=== PATIENT | male | born 1970 | race Hispanic/Latino ===

== ENCOUNTER 2020-07-11 19:56 | Emergency (ER) | payer SELFPAY ==
[2020-07-11 21:29] LABS: Hemoglobin 15.2 g/dL (14.0-18.0); Mean Corpuscular HGB CONC 33.3 g/dL (32.0-36.0); Mean Corpuscular Volume 83.9 fL (78.0-98.0); Mean Platelet Volume 8.1 fL (7.4-10.4); Platelet Count 279 thou/uL (130-400); RBC Distribution Width 12.2 % (11.5-14.5); Red Blood Cell (RBC) Count 5.42 mill/uL (4.70-6.10); White Blood Cell (WBC) Count 21.8 thou/uL (4.8-10.8)
[2020-07-11 21:31] LABS: Bacteria/HPF None Seen HPF (None Seen); Bilirubin Negative (Negative); Blood, Urine 1+ (Negative); Clarity Clear (Clear); Glucose, Urine (Dipstick) 50 mg/dL (Negative); Ketone, Urine Greater than 150 mg/dL (Negative); Leukocyte Negative Leu/uL (Negative); Mucous/LPF 1+ LPF (<2+); Nitrite Negative (Negative); Protein, Urine (Dipstick) 100 mg/dL (Neg-Trace); Renal Epithelial 0-3 HPF (None Seen); Specific Gravity, Urine 1.038 (1.002-1.036); Squamous Epithelial 0-3 HPF (0-3); Urobilinogen Normal mg/dL (Less than 2); WBC/HPF 0-3 HPF (0-3)
[2020-07-11 21:47] LABS: Band 13 % (5-11); MDiff Complete? YES; Monocytes 2 % (0-10); Neutrophil 85 % (42-75); Platelet Morphology Comment Appears Adequate; RBC Morphology Normal
[2020-07-11 21:55] LABS: ALT (SGPT) 18 U/L (8-55); AST (SGOT) 18 U/L (5-34); Albumin 4.8 g/dL (3.5-5.0); Alkaline Phosphatase 147 U/L (40-110); Anion Gap 21 mmol/L (10-20); BUN (Urea Nitrogen) 17 mg/dL (8.9-20.6); Bilirubin, Total 0.8 mg/dL (0.2-1.2); Calc. Creatinine Clearance 0 mL/min (70-130); Calcium 9.8 mg/dL (7.8-10.44); Carbon Dioxide 21 mmol/L (22-29); Chloride 102 mmol/L (98-107); Glucose 152 mg/dL (70-105); Lipase 6 U/L (8-78); Potassium 4.3 mmol/L (3.5-5.1); Protein, Total 8.8 g/dL (6.0-8.3); Sodium 140 mmol/L (136-145)
[2020-07-11] MEDS ORDERED: Morphine 4 MG/ML VIAL ONE (22:36)
[2020-07-11] MEDS ORDERED: Ondansetron PF 4 MG/2 ML Vial ONE (22:36)
[2020-07-12] MEDS ORDERED: Ondansetron PF 4 MG/2 ML Vial ONE (01:02)
[2020-07-12] MEDS ORDERED: Morphine 4 MG/ML VIAL ONE (01:02)
--- NOTE | 2020-07-12 07:51 | CT ---
CT ABDOMEN AND PELVIS WITH IV CONTRAST: DATE: 07/11/2020. PROVIDED CLINICAL HISTORY: Abdominal pain with nausea and vomiting. FINDINGS: The visualized lung bases are free of significant opacity. There are numerous hypodense lesions within the liver, which demonstrate Hounsfield units greater edwin n expected for cysts. The largest of these measures about 2.2 cm involving the right hepatic lobe ne ar the dome and is somewhat poorly defined peripherally. There is focal intrahepatic biliary ductal dilatation involving the posterior segment of the right hepatic lobe cranially. The spleen, pancreas, kidneys, and adrenal glands appear unremarkable. There is focal mural thickening involving the sigmoid colon. There is adjacent inflammatory fat stra nding as well as phlegmon. There is no amilcar extraluminal gas or extraluminal fluid evident. Notabl y, sigmoid diverticula are not prominent. There is no additional inflammatory fat stranding. The appendix appears normal. There is no free fl uid or free air apparent. There is a soft tissue density within the retroperitoneum immediately anterior to the aortic bifurcat ion likely reflects an enlarged lymph node. The osseous structures no concerning lytic or blastic lesions. IMPRESSION: 1. Focal mural thickening involving the mid sigmoid colon with surrounding fat stranding and phlegmo n. This may reflect focal sigmoid colonic diverticulitis. The possibility of an inflammatory carcin ricky should also be considered. 2. Enlarged retroperitoneal lymph node and multiple low-density hepatic lesions may reflect metastat ic disease. 3. Focal intrahepatic biliary ductal dilatation involving the posterior segment of the right hepatic lobe. Further evaluation with nonemergent MRCP is recommended. POS: NOLBERTO
== END 2020-07-12 01:36 | disposition home or self-care (01) ==
LOC: ERS 19:56
DX: K57.92 Diverticulitis of intestine, part unspecified, without perforation or abscess without bleeding (principal); D72.829 Elevated white blood cell count, unspecified; R11.2 Nausea with vomiting, unspecified
CPT/HCPCS: 36415; 74177; 80053; 81003; 81015; 83690; 84484; 85025; 96374; 96375; 96376; J2270; J2405

== ENCOUNTER 2021-03-10 15:23 | Inpatient (IN) | payer SELFPAY ==
[~2021-03-10 15:23] MED LIST: Iopamidol-370 76% 500 ML 1 ML ONE
[2021-03-10 17:41] LABS: #Basophils 0.1 thou/uL (0.0-0.2); #Eosinphils 0.2 thou/uL (0.0-0.7); #Lymphocytes 2.1 thou/uL (1.20-3.40); #Monocytes 0.9 thou/uL (0.11-0.59); %Eosinophils 1.9 % (0.0-10.0); %Lymphocytes 25.7 % (21.0-51.0); %Monocytes 10.6 % (0.0-10.0); %Neutrophils 60.7 % (42.0-75.0); Hemoglobin 9.9 g/dL (14.0-18.0); Mean Corpuscular HGB CONC 32.7 g/dL (32.0-36.0); Mean Corpuscular Hemoglobin 22.4 pg (27.0-31.0); Mean Corpuscular Volume 68.7 fL (78.0-98.0); Mean Platelet Volume 9.5 fL (7.4-10.4); Platelet Count 369 thou/uL (130-400); RBC Distribution Width 14.8 % (11.5-14.5); Red Blood Cell (RBC) Count 4.41 mill/uL (4.70-6.10); White Blood Cell (WBC) Count 8.2 thou/uL (4.8-10.8)
[2021-03-10 18:01] LABS: ALT (SGPT) 20 U/L (8-55); AST (SGOT) 22 U/L (5-34); Albumin 4.4 g/dL (3.5-5.0); Alkaline Phosphatase 167 U/L (40-110); Anion Gap 16 mmol/L (10-20); BUN (Urea Nitrogen) 17 mg/dL (8.4-25.7); Bilirubin, Total 0.3 mg/dL (0.2-1.2); Calc. Creatinine Clearance 0 mL/min (70-130); Carbon Dioxide 21 mmol/L (22-29); Chloride 103 mmol/L (98-107); Globulin 3.9 g/dL (2.4-3.5); Glucose 97 mg/dL (70-105); Lipase 29 U/L (8-78); Protein, Total 8.3 g/dL (6.0-8.3); Sodium 136 mmol/L (136-145)
[2021-03-10 18:04] LABS: MDiff Complete? YES; Microcytosis MODERATE=15-30 cells (100X) (0-5/hpf); Ovalocytes SLIGHT = 2-5 cells (100X) (0-1/hpf); Platelet Morphology Comment Appears Adequate; Polychromasia SLIGHT = 2-3 cells (100X) (0-2/hpf); Schistocytes SLIGHT = 2-5 cells (100X) (0-1/hpf); Target Cells SLIGHT = 2-5 cells (100X) (0-1/hpf); Tear Drops SLIGHT = 2-5 cells (100X) (0-1/hpf)
[2021-03-10] MEDS ORDERED: Acetaminophen 500 MG TAB ONE (18:24)
[2021-03-10] MEDS ORDERED: Morphine 4 MG/ML VIAL ONE ×2 (18:24→20:55)
[2021-03-10] MEDS ORDERED: Ondansetron PF 4 MG/2 ML Vial ONE (18:24)
[2021-03-10 19:21] LABS: Bilirubin Negative (Negative); Blood, Urine Negative (Negative); Glucose, Urine (Dipstick) Normal (Negative); Ketone, Urine 20 mg/dL (Negative); Leukocyte Negative Leu/uL (Negative); Nitrite Negative (Negative); Protein, Urine (Dipstick) Negative (Neg-Trace); Urobilinogen Normal mg/dL (Less than 2)
[2021-03-10 19:28] LABS: Clarity Hazy (Clear)
[2021-03-10] MEDS ORDERED: Ondansetron PF 4 MG/2 ML Vial IVP PRN (21:07)
[2021-03-10] MEDS ORDERED: Morphine 2 MG/ML VIAL SLOW IVP PRN ×2 (21:16→21:20)
[2021-03-10] MEDS ORDERED: Morphine 4 MG/ML VIAL SLOW IVP SCH (21:30)
[2021-03-10 22:00] LABS: Reticulocyte Count 0.9 % (0.5-1.5)
[2021-03-10 22:02] LABS: Hemoglobin 8.8 g/dL (14.0-18.0); Mean Corpuscular HGB CONC 31.9 g/dL (32.0-36.0); Mean Corpuscular Hemoglobin 22.1 pg (27.0-31.0); Mean Corpuscular Volume 69.1 fL (78.0-98.0); Mean Platelet Volume 9.3 fL (7.4-10.4); Platelet Count 346 thou/uL (130-400); RBC Distribution Width 14.6 % (11.5-14.5); Red Blood Cell (RBC) Count 3.97 mill/uL (4.70-6.10); White Blood Cell (WBC) Count 7.3 thou/uL (4.8-10.8)
[2021-03-10 22:03] LABS: SARS-CoV-2 NAA Rapid Test Not Detected (NotDetected)
[2021-03-10 22:10] LABS: INR-International Normal Ratio 1.1; PTT 32.4 sec (22.9-36.1); Prothrombin Time 13.8 sec (12.0-14.7)
[2021-03-10] MEDS: Lactated Ringer's 1,000 ML IV SCH (22:15)
[2021-03-10 22:18] LABS: Iron 10 ug/dL (65-175); Iron 9 ug/dL (65-175); Iron Binding Capacity, Total 394 mcg/dL (261-462); Iron Binding Capacity, Total 398 mcg/dL (261-462); Transferrin, Serum 318 mg/dL (174-364)
[2021-03-10 22:26] LABS: Band 1 % (5-11); Elliptocytes SLIGHT = 2-5 cells (100X) (0-1/hpf); Hypochromia SLIGHT = 6-15 cells (100X) (0-5/hpf); Lymphocytes 30 % (21-51); MDiff Complete? YES; Microcytosis SLIGHT = 6-15 cells (100X) (0-5/hpf); Monocytes 7 % (0-10); Neutrophil 61 % (42-75); Platelet Morphology Comment Appears Adequate
[2021-03-10 22:37] LABS: CEA, Serum 6.36 ng/mL (< or = 5.0); Ferritin 10.59 ng/mL (22-322)
[2021-03-10 22:38] LABS: Syphilis Antibody Nonreactive (Nonreactive); Syphilis Antibody Index 0.04 S/CO (<1.00 Non-Reactive)
[2021-03-10 22:44] LABS: Vitamin B12 333 pg/mL (211-911)
[2021-03-10 22:54] VITALS: BMI 20.4
[2021-03-11] MEDS: Morphine 4 MG/ML VIAL SLOW IVP PRN ×4 (00:42→23:57)
[2021-03-11 01:24] LABS: HBCM Index 0.07 S/CO (0-0.79); HBSAB Concentration Less than 8.00 mIU/mL; HBSAg Index 0.19 S/CO (0-0.99); HIV (1/2) Antibody/Antigen Non-Reactive (NonReactive); Hep A IgM AB Non-Reactive (NonReactive); Hep A IgM S/CO 0.34 S/CO (0-0.79); Hep B Surf AB Non-Reactive (NonReactive); Hep B Surf Ag Non-Reactive S/CO (NonReactive); Hep C IgG Ab Non-Reactive (NonReactive); Hep C Index 0.15 S/CO (0-0.79); Hepatitis B Core IgM Abs Non-Reactive (NonReactive)
[2021-03-11 06:52] LABS: #Basophils 0.1 thou/uL (0.0-0.2); #Eosinphils 0.3 thou/uL (0.0-0.7); #Lymphocytes 2.9 thou/uL (1.20-3.40); #Monocytes 0.7 thou/uL (0.11-0.59); %Basophils 1.1 % (0.0-1.0); %Eosinophils 4.8 % (0.0-10.0); %Lymphocytes 41.8 % (21.0-51.0); %Monocytes 9.6 % (0.0-10.0); %Neutrophils 42.8 % (42.0-75.0); Mean Corpuscular HGB CONC 31.8 g/dL (32.0-36.0); Mean Corpuscular Hemoglobin 22.3 pg (27.0-31.0); Mean Corpuscular Volume 70.1 fL (78.0-98.0); Mean Platelet Volume 9.5 fL (7.4-10.4); Platelet Count 310 thou/uL (130-400); RBC Distribution Width 14.7 % (11.5-14.5); Red Blood Cell (RBC) Count 3.58 mill/uL (4.70-6.10); White Blood Cell (WBC) Count 6.9 thou/uL (4.8-10.8)
[2021-03-11 07:05] LABS: ALT (SGPT) 17 U/L (8-55); AST (SGOT) 17 U/L (5-34); Albumin 3.7 g/dL (3.5-5.0); Alkaline Phosphatase 131 U/L (40-110); Anion Gap 11 mmol/L (10-20); BUN (Urea Nitrogen) 14 mg/dL (8.4-25.7); Bilirubin, Total 0.5 mg/dL (0.2-1.2); Calc. Creatinine Clearance 69 mL/min (70-130); Calcium 9.1 mg/dL (7.8-10.44); Carbon Dioxide 24 mmol/L (22-29); Chloride 106 mmol/L (98-107); Globulin 3.1 g/dL (2.4-3.5); Glucose 84 mg/dL (70-105); Magnesium 2.1 mg/dL (1.6-2.6); Protein, Total 6.8 g/dL (6.0-8.3); Sodium 137 mmol/L (136-145)
[2021-03-11] MEDS: Lactated Ringer's 1,000 ML IV SCH ×2 (07:25→17:30)
[2021-03-11] MEDS ORDERED: GoLYTELY 4,000 ml Bottle PO SCH (20:00)
[2021-03-12] MEDS ORDERED: GoLYTELY 4,000 ml Bottle PO SCH (03:00)
[2021-03-12] MEDS: Lactated Ringer's 1,000 ML IV SCH ×3 (03:06→19:27)
[2021-03-12 06:26] LABS: #Basophils 0.1 thou/uL (0.0-0.2); #Eosinphils 0.2 thou/uL (0.0-0.7); #Lymphocytes 1.8 thou/uL (1.20-3.40); #Monocytes 0.6 thou/uL (0.11-0.59); #Neutrophils 3.7 thou/uL (1.40-6.50); %Eosinophils 3.9 % (0.0-10.0); %Lymphocytes 27.4 % (21.0-51.0); %Monocytes 9.4 % (0.0-10.0); %Neutrophils 58.3 % (42.0-75.0); Hemoglobin 8.7 g/dL (14.0-18.0); Mean Corpuscular HGB CONC 30.5 g/dL (32.0-36.0); Mean Corpuscular Hemoglobin 21.3 pg (27.0-31.0); Mean Corpuscular Volume 69.8 fL (78.0-98.0); Mean Platelet Volume 9.3 fL (7.4-10.4); Platelet Count 347 thou/uL (130-400); RBC Distribution Width 14.8 % (11.5-14.5); White Blood Cell (WBC) Count 6.4 thou/uL (4.8-10.8)
[2021-03-12 06:46] LABS: ALT (SGPT) 21 U/L (8-55); AST (SGOT) 23 U/L (5-34); Albumin 4.2 g/dL (3.5-5.0); Alkaline Phosphatase 160 U/L (40-110); Anion Gap 14 mmol/L (10-20); BUN (Urea Nitrogen) 10 mg/dL (8.4-25.7); Bilirubin, Total 0.4 mg/dL (0.2-1.2); Calc. Creatinine Clearance 73 mL/min (70-130); Calcium 9.4 mg/dL (7.8-10.44); Carbon Dioxide 26 mmol/L (22-29); Chloride 101 mmol/L (98-107); Globulin 3.4 g/dL (2.4-3.5); Glucose 89 mg/dL (70-105); Potassium 3.4 mmol/L (3.5-5.1); Protein, Total 7.6 g/dL (6.0-8.3); Sodium 138 mmol/L (136-145)
[2021-03-12] MEDS: Morphine 4 MG/ML VIAL SLOW IVP PRN ×3 (08:42→23:16)
[2021-03-12] MEDS ORDERED: Lidocaine 1% PF 5 ML VIAL ONE (12:14)
[2021-03-12] MEDS ORDERED: PROPOFOL 200 MG/20 ML VIAL ONE (12:14)
[2021-03-12] MEDS ORDERED: cefOXitin 2 GM in Sodium Chloride 0.9% 100 ML IVPB SCH (19:00)
[2021-03-12] MEDS ORDERED: Magnesium Citrate 300 ML BOT PO SCH (19:00)
[2021-03-12] MEDS ORDERED: Neomycin 500 mg Tablet PO SCH ×2 (19:30→21:00)
[2021-03-12] MEDS ORDERED: Erythromycin Base 250 MG TAB PO SCH ×2 (19:30→21:00)
[2021-03-13] MEDS: Lactated Ringer's 1,000 ML IV SCH ×2 (05:05→23:00)
[2021-03-13 05:45] LABS: #Basophils 0.1 thou/uL (0.0-0.2); #Eosinphils 0.2 thou/uL (0.0-0.7); #Lymphocytes 1.4 thou/uL (1.20-3.40); #Monocytes 0.4 thou/uL (0.11-0.59); #Neutrophils 3.9 thou/uL (1.40-6.50); %Basophils 1.2 % (0.0-1.0); %Eosinophils 3.1 % (0.0-10.0); %Lymphocytes 23.3 % (21.0-51.0); %Monocytes 7.2 % (0.0-10.0); %Neutrophils 65.2 % (42.0-75.0); Hemoglobin 8.2 g/dL (14.0-18.0); Mean Corpuscular HGB CONC 31.7 g/dL (32.0-36.0); Mean Corpuscular Hemoglobin 22.2 pg (27.0-31.0); Platelet Count 295 thou/uL (130-400); RBC Distribution Width 14.7 % (11.5-14.5); Red Blood Cell (RBC) Count 3.69 mill/uL (4.70-6.10)
[2021-03-13 06:21] LABS: ALT (SGPT) 20 U/L (8-55); AST (SGOT) 20 U/L (5-34); Albumin 3.9 g/dL (3.5-5.0); Alkaline Phosphatase 148 U/L (40-110); Anion Gap 16 mmol/L (10-20); BUN (Urea Nitrogen) 6 mg/dL (8.4-25.7); Bilirubin, Total 0.4 mg/dL (0.2-1.2); Calc. Creatinine Clearance 78 mL/min (70-130); Calcium 9.2 mg/dL (7.8-10.44); Carbon Dioxide 22 mmol/L (22-29); Chloride 104 mmol/L (98-107); Globulin 3.4 g/dL (2.4-3.5); Glucose 86 mg/dL (70-105); Potassium 3.6 mmol/L (3.5-5.1); Protein, Total 7.3 g/dL (6.0-8.3); Sodium 138 mmol/L (136-145)
[2021-03-13] MEDS: Ferrous Sulfate 325 MG TAB PO SCH (07:25)
[2021-03-13] MEDS: Erythromycin Base 250 MG TAB PO SCH ×4 (08:35→22:27)
[2021-03-13] MEDS: Neomycin 500 mg Tablet PO SCH ×4 (08:35→22:27)
[2021-03-13] MEDS ORDERED: Bupivacaine 0.25% HCL 30 ML VIAL ONE ×2 (10:57→11:31)
[2021-03-13] MEDS ORDERED: Lidocaine 1% w/Epinephrine 1:100K 20 ML VIAL ONE (10:57)
[2021-03-13] MEDS ORDERED: cefOXitin Sodium/Dextrose 2 GM/50 ML BAG ONE (11:07)
[2021-03-13] MEDS ORDERED: Midazolam HCl 2 mg/2 ml Vial ONE (11:27)
[2021-03-13] MEDS ORDERED: Fentanyl 100 MCG/2 ML VIAL ONE ×2 (11:27→15:24)
[2021-03-13] MEDS ORDERED: EPINEPHrine 1 MG/ML AMP ONE (11:31)
[2021-03-13] MEDS ORDERED: Lidocaine 1% (PF) 30 ML VIAL ONE (11:59)
[2021-03-13] MEDS ORDERED: Fentanyl 250 MCG/5 ML VIAL ONE (12:01)
[2021-03-13] MEDS ORDERED: PHENYLEPHRINE-NS 100 MCG/ML 10 ML SYRINGE ONE (12:36)
[2021-03-13] MEDS ORDERED: Rocuronium Bromide 10 MG/ML (10ML VIAL) ONE (12:36)
[2021-03-13] MEDS ORDERED: Dexamethasone 20 MG/5 ML VIAL ONE (12:36)
[2021-03-13] MEDS ORDERED: Bupivacaine HCl 0.5%/Epinephrine 1:200,000/PF 30 ml Vial ONE (12:36)
[2021-03-13] MEDS ORDERED: PROPOFOL 200 MG/20 ML VIAL ONE (12:36)
[2021-03-13] MEDS ORDERED: Lidocaine 1% PF 5 ML VIAL ONE (12:36)
[2021-03-13] MEDS ORDERED: Ondansetron PF 4 MG/2 ML Vial ONE (12:36)
[2021-03-13] MEDS ORDERED: SUGAMMADEX SODIUM 200 MG/2 ML VIAL ONE (13:50)
[2021-03-13] MEDS ORDERED: Promethazine HCl 25 MG/ML VIAL IVPB PRN (15:00)
[2021-03-13] MEDS ORDERED: Meperidine HCl/PF 25 MG/ML VIAL SLOW IVP PRN (15:00)
[2021-03-13] MEDS ORDERED: Morphine Sulfate 2 MG/ML SYRINGE SLOW IVP PRN (15:00)
[2021-03-13] MEDS ORDERED: Ketorolac Tromethamine 30 MG/ML VIAL IVP PRN (15:00)
[2021-03-13] MEDS ORDERED: Ondansetron HCl/PF 4 MG/2 ML Vial IVP PRN (15:00)
[2021-03-13] MEDS ORDERED: Promethazine HCl 25 MG/ML VIAL IM PRN (15:00)
[2021-03-13] MEDS ORDERED: HYDROmorphone 2 MG/ML VIAL SLOW IVP PRN (15:00)
[2021-03-13] MEDS ORDERED: Morphine 2 MG/ML VIAL SLOW IVP PRN (16:36)
[2021-03-13] MEDS ORDERED: Ibuprofen 200 MG TAB PO PRN (16:38)
[2021-03-13] MEDS ORDERED: Ibuprofen 600 MG TAB PO PRN (16:39)
[2021-03-13] MEDS ORDERED: Acetaminophen 325 MG TAB PO PRN (16:42)
[2021-03-13] MEDS: cefOXitin Sodium/Dextrose,Iso 2 GM in Premix Bag 1 BAG IVPB SCH (22:26)
[2021-03-13] MEDS: Morphine 4 MG/ML VIAL SLOW IVP PRN (22:31)
[2021-03-13] MEDS: Ondansetron ODT 4 MG TAB PO PRN (22:31)
[2021-03-14] MEDS: cefOXitin Sodium/Dextrose,Iso 2 GM in Premix Bag 1 BAG IVPB SCH (03:07)
[2021-03-14] MEDS: Morphine 4 MG/ML VIAL SLOW IVP PRN (03:07)
[2021-03-14] MEDS: Lactated Ringer's 1,000 ML IV SCH ×2 (04:49→08:57)
[2021-03-14 05:53] LABS: #Lymphocytes 0.8 thou/uL (1.20-3.40); #Monocytes 0.8 thou/uL (0.11-0.59); #Neutrophils 9.9 thou/uL (1.40-6.50); %Basophils 0.1 % (0.0-1.0); %Monocytes 7.1 % (0.0-10.0); %Neutrophils 85.9 % (42.0-75.0); Hemoglobin 7.9 g/dL (14.0-18.0); Mean Corpuscular HGB CONC 32.1 g/dL (32.0-36.0); Mean Corpuscular Hemoglobin 22.3 pg (27.0-31.0); Mean Corpuscular Volume 69.5 fL (78.0-98.0); Mean Platelet Volume 9.2 fL (7.4-10.4); Platelet Count 305 thou/uL (130-400); RBC Distribution Width 14.8 % (11.5-14.5); Red Blood Cell (RBC) Count 3.56 mill/uL (4.70-6.10); White Blood Cell (WBC) Count 11.5 thou/uL (4.8-10.8)
[2021-03-14 06:03] LABS: ALT (SGPT) 22 U/L (8-55); AST (SGOT) 26 U/L (5-34); Albumin 3.9 g/dL (3.5-5.0); Alkaline Phosphatase 140 U/L (40-110); Anion Gap 12 mmol/L (10-20); BUN (Urea Nitrogen) 8 mg/dL (8.4-25.7); Bilirubin, Total 0.4 mg/dL (0.2-1.2); Calc. Creatinine Clearance 66 mL/min (70-130); Calcium 8.9 mg/dL (7.8-10.44); Carbon Dioxide 24 mmol/L (22-29); Chloride 103 mmol/L (98-107); Globulin 3.2 g/dL (2.4-3.5); Glucose 124 mg/dL (70-105); Potassium 3.9 mmol/L (3.5-5.1); Protein, Total 7.1 g/dL (6.0-8.3); Sodium 135 mmol/L (136-145)
[2021-03-14] MEDS: Ferrous Sulfate 325 MG TAB PO SCH (08:56)
[2021-03-14] MEDS: Erythromycin Base 250 MG TAB PO SCH ×2 (08:57→13:50)
[2021-03-14] MEDS: Neomycin 500 mg Tablet PO SCH ×2 (08:58→13:51)
[2021-03-14] MEDS: Ondansetron ODT 4 MG TAB PO PRN (13:53)
[2021-03-14] MEDS: HYDROcodone/Acetaminophen 7.5/325 mg Tablet PO PRN (18:19)
[2021-03-15] MEDS: HYDROcodone/Acetaminophen 7.5/325 mg Tablet PO PRN ×3 (00:38→09:16)
[2021-03-15 05:34] LABS: #Lymphocytes 1.6 thou/uL (1.20-3.40); #Monocytes 0.7 thou/uL (0.11-0.59); #Neutrophils 7.3 thou/uL (1.40-6.50); %Basophils 0.3 % (0.0-1.0); %Eosinophils 0.2 % (0.0-10.0); %Lymphocytes 16.3 % (21.0-51.0); %Monocytes 7.5 % (0.0-10.0); %Neutrophils 75.7 % (42.0-75.0); Hemoglobin 7.9 g/dL (14.0-18.0); Mean Corpuscular HGB CONC 32.1 g/dL (32.0-36.0); Mean Corpuscular Hemoglobin 22.2 pg (27.0-31.0); Mean Corpuscular Volume 69.3 fL (78.0-98.0); Mean Platelet Volume 9.2 fL (7.4-10.4); Platelet Count 336 thou/uL (130-400); RBC Distribution Width 14.8 % (11.5-14.5); Red Blood Cell (RBC) Count 3.56 mill/uL (4.70-6.10); White Blood Cell (WBC) Count 9.6 thou/uL (4.8-10.8)
[2021-03-15 06:03] LABS: ALT (SGPT) 35 U/L (8-55); AST (SGOT) 42 U/L (5-34); Albumin 3.6 g/dL (3.5-5.0); Alkaline Phosphatase 143 U/L (40-110); Anion Gap 9 mmol/L (10-20); BUN (Urea Nitrogen) 11 mg/dL (8.4-25.7); Bilirubin, Total 0.4 mg/dL (0.2-1.2); Calc. Creatinine Clearance 67 mL/min (70-130); Carbon Dioxide 27 mmol/L (22-29); Chloride 103 mmol/L (98-107); Globulin 3.2 g/dL (2.4-3.5); Glucose 93 mg/dL (70-105); Potassium 3.8 mmol/L (3.5-5.1); Protein, Total 6.8 g/dL (6.0-8.3); Sodium 135 mmol/L (136-145)
[2021-03-15] MEDS: Ferrous Sulfate 325 MG TAB PO SCH (09:14)
[2021-03-15 12:17] VITALS: BP 118/74; TEMP 98.5
== END 2021-03-15 16:30 | disposition home or self-care (01) | DRG 330 ==
LOC: ERS 15:23 → EEVIPCON 20:08 → SJJU 20:08
PROVIDERS: ADMIT Family Medicine; ATTEND Family Medicine
PROC: 0DBN8ZX Excision of Sigmoid Colon, Via Natural or Artificial Opening Endoscopic, Diagnostic (ICD-10-PCS; 2021-03-12)
PROC: 0DBP8ZZ Excision of Rectum, Via Natural or Artificial Opening Endoscopic (ICD-10-PCS; 2021-03-12)
PROC: 0D1L4Z4 Bypass Transverse Colon to Cutaneous, Percutaneous Endoscopic Approach (ICD-10-PCS; principal; 2021-03-13)
PROC: 0DBL4ZX Excision of Transverse Colon, Percutaneous Endoscopic Approach, Diagnostic (ICD-10-PCS; 2021-03-13)
DX: C18.7 Malignant neoplasm of sigmoid colon (principal); C78.6 Secondary malignant neoplasm of retroperitoneum and peritoneum; C78.7 Secondary malignant neoplasm of liver and intrahepatic bile duct; K92.1 Melena; Z20.822 Contact with and (suspected) exposure to COVID-19; K64.8 Other hemorrhoids; K62.1 Rectal polyp; K63.5 Polyp of colon; F12.10 Cannabis abuse, uncomplicated; D50.9 Iron deficiency anemia, unspecified; G47.00 Insomnia, unspecified; Z80.49 Family history of malignant neoplasm of other genital organs; Z83.3 Family history of diabetes mellitus; Z84.1 Family history of disorders of kidney and ureter; Z82.49 Family history of ischemic heart disease and other diseases of the circulatory system; Z71.51 Drug abuse counseling and surveillance of drug abuser
CPT/HCPCS: 36415; 36416; 74177; 76705; 80053; 81003; 82274; 82378; 82607; 82728; 82746; 83540; 83550; 83690; 83735; 84466; 85025; 85046; 85060; 85610; 85730; 86705; 86706; 86707; 86709; 86780; 86803; 87340; 87389; 88305; 96374; 96375; 96376; J0171; J0694; J1100; J2001; J2250; J2270; J2405; J2704; J3010; J7120; Q0162; Q9967; S0020; U0002

== ENCOUNTER 2021-07-08 20:47 | Emergency (ER) | payer SELFPAY ==
[2021-07-09] MEDS ORDERED: Ondansetron PF 4 MG/2 ML Vial ONE (00:53)
[2021-07-09] MEDS ORDERED: Morphine 10 MG/ML VIAL ONE (00:53)
[2021-07-09 01:08] LABS: #Lymphocytes 0.8 thou/uL (1.20-3.40); #Monocytes 0.4 thou/uL (0.11-0.59); #Neutrophils 7.5 thou/uL (1.40-6.50); %Basophils 0.3 % (0.0-1.0); %Eosinophils 0.1 % (0.0-10.0); %Lymphocytes 9.1 % (21.0-51.0); %Monocytes 4.7 % (0.0-10.0); %Neutrophils 85.8 % (42.0-75.0); Hemoglobin 12.3 g/dL (14.0-18.0); Mean Corpuscular HGB CONC 33.6 g/dL (32.0-36.0); Mean Corpuscular Hemoglobin 26.4 pg (27.0-31.0); Mean Corpuscular Volume 78.7 fL (78.0-98.0); Mean Platelet Volume 9.5 fL (7.4-10.4); Platelet Count 325 thou/uL (130-400); RBC Distribution Width 21.9 % (11.5-14.5); Red Blood Cell (RBC) Count 4.65 mill/uL (4.70-6.10); White Blood Cell (WBC) Count 8.7 thou/uL (4.8-10.8)
[2021-07-09 01:30] LABS: ALT (SGPT) 64 U/L (8-55); AST (SGOT) 49 U/L (5-34); Albumin 4.2 g/dL (3.5-5.0); Alkaline Phosphatase 952 U/L (40-110); Anion Gap 18 mmol/L (10-20); BUN (Urea Nitrogen) 13 mg/dL (8.4-25.7); Bilirubin, Total 1.1 mg/dL (0.2-1.2); Calc. Creatinine Clearance 0 mL/min (70-130); Calcium 11.1 mg/dL (7.8-10.44); Carbon Dioxide 25 mmol/L (22-29); Chloride 98 mmol/L (98-107); Globulin 4.4 g/dL (2.4-3.5); Glucose 111 mg/dL (70-105); Potassium 3.7 mmol/L (3.5-5.1); Protein, Total 8.6 g/dL (6.0-8.3); Sodium 137 mmol/L (136-145)
[2021-07-09] MEDS ORDERED: HYDROmorphone 0.5 MG/0.5 ML SYRINGE ONE (03:04)
[2021-07-09 03:16] LABS: Bilirubin Negative (Negative); Blood, Urine Negative (Negative); Clarity Clear (Clear); Glucose, Urine (Dipstick) Normal (Negative); Ketone, Urine 60 mg/dL (Negative); Leukocyte Negative Leu/uL (Negative); Nitrite Negative (Negative); Protein, Urine (Dipstick) Negative (Neg-Trace); Specific Gravity, Urine 1.021 (1.002-1.036); Urobilinogen Normal mg/dL (Less than 2)
[2021-07-09] MEDS ORDERED: Iopamidol-370 76% 500 ML 1 ML ONE (09:47)
== END 2021-07-09 03:48 | disposition home or self-care (01) ==
LOC: ERS 20:47
DX: N13.0 Hydronephrosis with ureteropelvic junction obstruction (principal); K59.00 Constipation, unspecified; C18.9 Malignant neoplasm of colon, unspecified; R10.32 Left lower quadrant pain
CPT/HCPCS: 36415; 74177; 80053; 81003; 85025; 96374; 96375; J1170; J2270; J2405; Q9967

== ENCOUNTER 2021-11-20 19:55 | Inpatient (IN) | payer MEDICAID, SELFPAY ==
[2021-11-20] MEDS ORDERED: Morphine 4 MG/ML VIAL ONE ×2 (20:51→22:00)
[2021-11-20 21:51] LABS: ALT (SGPT) 281 U/L (8-55); AST (SGOT) 385 U/L (5-34); Alkaline Phosphatase 2031 U/L (40-110); Anisocytosis SLIGHT = 6-15 cells (100X) (0-5/hpf); BUN (Urea Nitrogen) 114 mg/dL (8.4-25.7); Band 10 % (5-11); Calc. Creatinine Clearance 0 mL/min (70-130); Calcium 6.7 mg/dL (7.8-10.44); Chloride 109 mmol/L (98-107); Globulin 2.2 g/dL (2.4-3.5); Hemoglobin 6.6 g/dL (14.0-18.0); Lymphocytes 9 % (21-51); MDiff Complete? YES; Mean Corpuscular HGB CONC 29.8 g/dL (32.0-36.0); Mean Corpuscular Hemoglobin 28.6 pg (27.0-31.0); Mean Corpuscular Volume 95.9 fL (78.0-98.0); Mean Platelet Volume 9.1 fL (7.4-10.4); Monocytes 2 % (0-10); Neutrophil 79 % (42-75); Platelet Count 287 thou/uL (130-400); Potassium 4.7 mmol/L (3.5-5.1); Protein, Total 4.2 g/dL (6.0-8.3); Red Blood Cell (RBC) Count 2.31 mill/uL (4.70-6.10); Sodium 137 mmol/L (136-145); White Blood Cell (WBC) Count 19.2 thou/uL (4.8-10.8)
[2021-11-20 21:58] LABS: Carbon Dioxide Less than 8 mmol/L (22-29); Glucose 57 mg/dL (70-105)
[2021-11-20 22:01] LABS: Bilirubin, Total 25.8 mg/dL (0.2-1.2)
[2021-11-20] MEDS ORDERED: Piperacillin/Tazobactam 3.375 GM VIAL ONE (22:01)
[2021-11-20] MEDS ORDERED: Vancomycin 1 GM/200 ML BAG ONE (23:11)
[2021-11-21] MEDS ORDERED: Acetaminophen 325 MG TAB PO PRN (00:15)
[2021-11-21] MEDS ORDERED: Ondansetron ODT 4 MG TAB SL PRN (00:15)
[2021-11-21] MEDS ORDERED: Sodium Chloride 0.9% 1,000 ML IV SCH ×3 (00:15→05:45)
[2021-11-21] MEDS ORDERED: Ondansetron PF 4 MG/2 ML Vial IVP PRN ×2 (00:15→11:00)
[2021-11-21] MEDS ORDERED: Acetaminophen 650 MG Suppository PR PRN ×2 (00:49→11:00)
[2021-11-21] MEDS ORDERED: Dextrose 10% in Water 1,000 ML IV SCH (01:00)
[2021-11-21] MEDS ORDERED: Cefepime 2 GM in Sodium Chloride 0.9% 100 ML IVPB SCH (02:00)
[2021-11-21 07:22] VITALS: TEMP 97.6
[2021-11-21 08:10] LABS: Hemoglobin 6.8 g/dL (14.0-18.0); Mean Corpuscular HGB CONC 31.9 g/dL (32.0-36.0); Mean Corpuscular Hemoglobin 31.1 pg (27.0-31.0); Mean Corpuscular Volume 97.3 fL (78.0-98.0); Platelet Count 150 thou/uL (130-400); RBC Distribution Width 15.9 % (11.5-14.5); Red Blood Cell (RBC) Count 2.19 mill/uL (4.70-6.10)
[2021-11-21 08:17] LABS: BUN (Urea Nitrogen) 110 mg/dL (8.4-25.7); Calc. Creatinine Clearance 15 mL/min (70-130); Chloride 112 mmol/L (98-107); Glucose 153 mg/dL (70-105); Potassium 4.2 mmol/L (3.5-5.1); Sodium 136 mmol/L (136-145)
[2021-11-21 08:20] LABS: Calcium 5.9 mg/dL (7.8-10.44); Carbon Dioxide Less than 8 mmol/L (22-29); Lactic Acid 6.4 mmol/L (0.5-2.2)
[2021-11-21 08:28] LABS: #Lymphocytes 0.6 thou/uL (1.20-3.40); #Monocytes 0.5 thou/uL (0.11-0.59); #Neutrophils 16.9 thou/uL (1.40-6.50); %Basophils 0.1 % (0.0-1.0); %Eosinophils 0.2 % (0.0-10.0); %Lymphocytes 3.3 % (21.0-51.0); %Monocytes 2.8 % (0.0-10.0); %Neutrophils 93.6 % (42.0-75.0); Band 12 % (5-11); Hypochromia SLIGHT = 6-15 cells (100X) (0-5/hpf); Lymphocytes 3 % (21-51); MDiff Complete? YES; Monocytes 2 % (0-10); Neutrophil 83 % (42-75); Platelet Morphology Comment Appears Adequate; Polychromasia SLIGHT = 2-3 cells (100X) (0-2/hpf)
[2021-11-21 08:31] VITALS: BMI 16.9
[2021-11-21] MEDS ORDERED: Enoxaparin Sodium 30 MG/0.3 ML SYRINGE SC SCH (09:00)
[2021-11-21] MEDS ORDERED: Morphine 4 MG/ML VIAL SLOW IVP PRN (10:35)
[2021-11-21] MEDS ORDERED: chlorproMAZINE HCl 50 MG/2 ML AMP SLOW IVP PRN (10:35)
[2021-11-21] MEDS ORDERED: Lorazepam 2 MG/ML VIAL SLOW IVP PRN (10:36)
[2021-11-21] MEDS ORDERED: Haloperidol Lactate 5 MG/ML VIAL SLOW IVP PRN (11:00)
[2021-11-21] MEDS ORDERED: Scopolamine 1.5 mg/72 hour Patch TOP PRN (11:00)
[2021-11-21] MEDS ORDERED: diphenhydrAMINE 50 MG/ML VIAL IVP PRN (11:00)
[2021-11-21] MEDS ORDERED: Promethazine HCl 25 MG SUPP PR PRN (11:00)
[2021-11-21 12:30] LABS: SARS-CoV-2 PCR by NAA Not Detected (NotDetected)
== END 2021-11-21 10:57 | disposition hospice, inpatient (51) | DRG 871 ==
LOC: ERS 19:55 → IMCU/EMU 23:55
PROVIDERS: ADMIT Student in an Organized Health Care Education/Training Program; ATTEND Emergency Medicine
PROC: 30233N1 Transfusion of Nonautologous Red Blood Cells into Peripheral Vein, Percutaneous Approach (ICD-10-PCS; principal; 2021-11-21)
DX: A41.9 Sepsis, unspecified organism (principal); E43 Unspecified severe protein-calorie malnutrition; N17.9 Acute kidney failure, unspecified; K92.2 Gastrointestinal hemorrhage, unspecified; C18.9 Malignant neoplasm of colon, unspecified; R64 Cachexia; Z68.1 Body mass index [BMI] 19.9 or less, adult; L89.152 Pressure ulcer of sacral region, stage 2; E16.2 Hypoglycemia, unspecified; D64.9 Anemia, unspecified; R68.0 Hypothermia, not associated with low environmental temperature; I95.9 Hypotension, unspecified; K72.90 Hepatic failure, unspecified without coma; F12.10 Cannabis abuse, uncomplicated; Z20.822 Contact with and (suspected) exposure to COVID-19; Z66 Do not resuscitate; Z51.5 Encounter for palliative care; Z93.3 Colostomy status; Z79.899 Other long term (current) drug therapy
CPT/HCPCS: 36415; 36416; 36430; 71045; 80048; 80053; 83605; 84484; 85025; 86850; 86900; 86901; 87040; 93005; J0692; J2270; J2543; J3370; J3490; J7050; P9016; U0003; U0005

== ENCOUNTER 2021-11-21 11:33 | Inpatient (IN) | payer OTHER ==
[2021-11-21 11:45] VITALS: BMI 16.8
[2021-11-21] MEDS ORDERED: Lorazepam 2 MG/ML VIAL SLOW IVP PRN (12:05)
[2021-11-21] MEDS ORDERED: chlorproMAZINE HCl 50 MG/2 ML AMP SLOW IVP PRN (12:06)
[2021-11-21] MEDS ORDERED: Scopolamine 1.5 mg/72 hour Patch TOP PRN (12:15)
[2021-11-21] MEDS ORDERED: Acetaminophen 650 MG Suppository PR PRN (12:15)
[2021-11-21] MEDS ORDERED: Ondansetron PF 4 MG/2 ML Vial IVP PRN (12:15)
[2021-11-21] MEDS ORDERED: Haloperidol Lactate 5 MG/ML VIAL SLOW IVP PRN ×2 (12:15)
[2021-11-21] MEDS ORDERED: Promethazine HCl 25 MG SUPP PR PRN (12:15)
[2021-11-21] MEDS ORDERED: diphenhydrAMINE 50 MG/ML VIAL IVP PRN (12:15)
[2021-11-21] MEDS: Morphine 4 MG/ML VIAL SLOW IVP PRN ×3 (12:40→14:53)
== END 2021-11-21 17:53 | disposition expired | DRG 951 ==
LOC: IMCU/EMU 11:33
PROVIDERS: ADMIT Family Medicine; ATTEND Family Medicine
DX: Z51.5 Encounter for palliative care (principal); A41.9 Sepsis, unspecified organism; C18.9 Malignant neoplasm of colon, unspecified; Z68.1 Body mass index [BMI] 19.9 or less, adult; K92.2 Gastrointestinal hemorrhage, unspecified; R63.0 Anorexia; N28.9 Disorder of kidney and ureter, unspecified
CPT/HCPCS: J2060; J2270